=== PATIENT | male | born 1940 | race American Indian/Alaskan Native ===

== ENCOUNTER 2017-03-14 12:49 | Inpatient (IN) | payer MEDICARE ==
[2017-03-14 14:10] LABS: Basophils % (Auto) 0.5 % (0.0-1.8); Eosinophils % (Auto) 0.4 % (0.0-4.3); Hematocrit 33.5 % (35.5-45.6); Hemoglobin 10.8 gm/dl (11.8-15.2); Mean Corpuscular HGB Conc 32 % (32-34); Mean Corpuscular Hemoglobin 30 pg (28-32); Mean Corpuscular Volume 93 fl (84-94); Platelet Count 234 K/mm3 (140-440); Red Blood Count 3.61 M/mm3 (3.65-5.03); Red Cell Distribution Width 13.9 % (13.2-15.2); White Blood Count 5.3 K/mm3 (4.5-11.0)
[2017-03-14 14:35] LABS: Anion Gap 20 mmol/L; BUN/Creatinine Ratio 15; Blood Urea Nitrogen 35 mg/dL (9-20); Calcium 8.7 mg/dL (8.4-10.2); Carbon Dioxide 27 mmol/L (22-30); Chloride 99.7 mmol/L (98-107); Glucose 94 mg/dL (75-100); Potassium 3.7 mmol/L (3.6-5.0); Sodium 143 mmol/L (137-145)
--- NOTE | 2017-03-14 15:14 | Emergency Department Report ---
ED General Adult HPI - General Chief complaint: Dizziness Stated complaint: GENERAL WEAKNESS Time Seen by Provider: 03/14/17 15:11 Source: patient Mode of arrival: Ambulatory Limitations: No Limitations - History of Present Illness Initial comments: The patient drove himself to the fire station and was found to have a bradycardia. He arrived via EMS. He states he left his medication list in the car and is on some unknown medication for hypertension. He does not state that he was ever on warfarin but medication reconciliation records show a prior history. In addition it appears that he might be on amlodipine as he was on this in the past as well as lisinopril. He states that he was told that his heart rate is "delayed". However, he has never been told he needs to avoid certain types of blood pressure medicine because of this "delayed" heart rate. The patient denies previous weakness. He does admit to being under excessive stress. He states that he was for 32 years and he has recently . -: Gradual Radiation: other (no complaint of pain at all) Treatments Prior to Arrival: none - Related Data Home Medications Medication Instructions Recorded Confirmed Last Taken Pantoprazole [Protonix TAB] 20 mg PO DAILY 03/14/17 03/14/17 03/14/17 Valsartan/Hydrochlorothiazide 1 each PO DAILY 03/14/17 03/14/17 03/14/17 [Valsartan-Hctz 160-12.5 mg Tab] Warfarin [Coumadin] 3.75 mg PO BID 03/14/17 03/14/17 03/14/17 Allergies Allergy/AdvReac Type Severity Reaction Status Date / Time No Known Allergies Allergy Verified 12/29/12 12:06 ED Review of Systems ROS: Stated complaint: GENERAL WEAKNESS Other details as noted in HPI Constitutional: weakness. denies: chills, fever Eyes: denies: eye pain, eye discharge, vision change ENT: denies: ear pain, throat pain Respiratory: denies: cough, shortness of breath, wheezing Cardiovascular: syncope (near syncope). denies: chest pain, palpitations Endocrine: no symptoms reported Gastrointestinal: denies: abdominal pain, nausea, diarrhea Genitourinary: denies: urgency, dysuria Musculoskeletal: denies: back pain, joint swelling, arthralgia Skin: denies: rash, lesions Neurological: denies: headache, weakness, paresthesias Psychiatric: denies: anxiety, depression Hematological/Lymphatic: denies: easy bleeding, easy bruising ED Past Medical Hx - Past Medical History Hx Hypertension: Yes Hx Heart Attack/AMI: Yes Hx Arthritis: Yes - Social History Smoking Status: Former Smoker Substance Use Type: Alcohol - Medications Home Medications: Home Medications Medication Instructions Recorded Confirmed Last Taken Type Pantoprazole [Protonix TAB] 20 mg PO DAILY 03/14/17 03/14/17 03/14/17 History Valsartan/Hydrochlorothiazide 1 each PO DAILY 03/14/17 03/14/17 03/14/17 History [Valsartan-Hctz 160-12.5 mg Tab] Warfarin [Coumadin] 3.75 mg PO BID 03/14/17 03/14/17 03/14/17 History ED Physical Exam - General Limitations: No Limitations General appearance: alert, in no apparent distress - Head Head exam: Present: atraumatic, normocephalic - Eye Eye exam: Present: normal appearance - ENT ENT exam: Present: mucous membranes moist - Neck Neck exam: Present: normal inspection - Respiratory Respiratory exam: Present: normal lung sounds bilaterally. Absent: respiratory distress - Cardiovascular Cardiovascular Exam: Present: normal rhythm, bradycardia. Absent: systolic murmur, diastolic murmur, rubs, gallop - GI/Abdominal GI/Abdominal exam: Present: soft, normal bowel sounds. Absent: distended, tenderness, guarding, rebound, rigid - Rectal Rectal exam: Present: deferred - Extremities Exam Extremities exam: Present: normal inspection - Back Exam Back exam: Present: normal inspection - Neurological Exam Neurological exam: Present: alert, oriented X3, CN II-XII intact. Absent: motor sensory deficit - Psychiatric Psychiatric exam: Present: normal affect, normal mood - Skin Skin exam: Present: warm, dry, intact, normal color. Absent: rash ED Course Vital Signs 03/14/17 03/14/17 13:20 16:48 Temperature 97.9 F Pulse Rate 44 L 48 L O2 Sat by Pulse 98 Oximetry - Reevaluation(s) Reevaluation #1: Patient was admitted by Dr. Dent to the hospitalist service in stable condition. 03/14/17 19:28 ED Medical Decision Making - Lab Data Result diagrams: 03/14/17 13:43 03/14/17 13:43 Laboratory Results - last 24 hr 03/14/17 03/14/17 13:43 13:43 WBC 5.3 RBC 3.61 L Hgb 10.8 L Hct 33.5 L MCV 93 MCH 30 MCHC 32 RDW 13.9 Plt Count 234 Lymph % (Auto) 13.8 [place] % (Auto) 5.4 Eos % (Auto) 0.4 Baso % (Auto) 0.5 Lymph # 0.7 L [place] # 0.3 Eos # 0.0 Baso # 0.0 Seg Neutrophils % 79.9 H Seg Neutrophils # 4.2 Sodium 143 Potassium 3.7 Chloride 99.7 Carbon Dioxide 27 Anion Gap 20 BUN 35 H Creatinine 2.4 H Estimated GFR 32 BUN/Creatinine Ratio 15 Glucose 94 Calcium 8.7 Troponin T < 0.010 - EKG Data -: EKG Interpreted by Me EKG shows normal: sinus rhythm, axis, intervals, QRS complexes, ST-T waves Rate: bradycardia - EKG Data Interpretation: no acute changes - Radiology Data Radiology results: report reviewed (ectatic aorta per radiologist) Critical care attestation.: If time is entered above; I have spent that time in minutes in the direct care of this critically ill patient, excluding procedure time. ED Disposition Clinical Impression: Near syncope, Bradycardia Disposition: DC-[id number] OP ADMIT IP TO THIS HOSP Is pt being admited?: Yes Does the pt Need Aspirin: Yes Condition: Stable Time of Disposition: 19:28
[2017-03-14] MEDS ORDERED: NACL 0.9% 1000 ML 1,000 ML IV ONE (15:16)
--- NOTE | 2017-03-14 15:35 | XRay Report ---
AP CHEST: HISTORY: Bradycardia Compared to 03/25/12. Heart size is at the upper limits of normal. Previous CABG changes are suspected. The aorta is markedly ectatic with calcifications. The lungs are clear. No evidence for pleural effusion or pneumothorax. The bony structures are grossly intact. Surgical clips in the right axilla. IMPRESSION: Borderline heart size. Ectatic aorta. Lungs clear.
[2017-03-14 15:50] LABS: INR 1.91 (0.87-1.13); Partial Thromboplastin Time 33.2 Sec. (24.2-36.6)
[2017-03-14 16:15] LABS: Alanine Aminotransferase 8 units/L (7-56); Albumin 3.8 g/dL (3.9-5); Albumin/Globulin Ratio 1.5 %; Alkaline Phosphatase 53 units/L (35-129); Total Protein 6.4 g/dL (6.3-8.2)
[2017-03-14 16:20] LABS: Bilirubin,Direct < 0.2 mg/dL (0-0.2); Bilirubin,Indirect 0.2 mg/dL
[2017-03-14 17:17] LABS: Bacteria,Urine 1+ /HPF (Negative); Bilirubin,Urine NEG (Negative); Blood,Urine NEG (Negative); Ketones,Urine NEG (Negative); Leukocyte Esterase,Urine NEG (Negative); Mucus,Urine FEW /HPF; Nitrite,Urine NEG (Negative); Protein,Urine <15 mg/dL mg/dL (Negative); WBC,Urine < 1.0 /HPF (0.0-6.0)
--- NOTE | 2017-03-14 17:48 | History and Physical Report ---
History of Present Illness Date of examination: 03/14/17 Date of admission: 03/14/17 15:44 Chief complaint: Low heart rate and new syncope History of present illness: 76-year-old -Senegalese male with past medical history significant for CAD status post 2 CABG, hypertension, hyperlipidemia presented to the emergency department for the complaints of low heart rate and near syncope. The patient said he had bradycardia the lowest was 36, associated with feeling woozy for a while. When he feels this kind of symptoms he usually sits down and check his heart rate and usually was low. This morning after he took his blood pressure medications he almost passed out and check his heart rate and it was 36. There is no bartolo blocking agents in his medication list. Patient said he was not taking warfarin but he was in his medication list and his INR was 1.9. REVIEW OF SYSTEMS: GENERAL: no weight change, no fatigue, no fever HEAD: no head ache EYES: no blurry vision, no acute visual loss EARS: no hearing loss, no discharge, no earache NOSE: no stuffiness, no sneezing, no discharge MOUTH, THROAT AND NECK: no bleeding gums, no sore throat, no swollen neck CARDIAC: no palpitations, no dyspnea on exertion, no orthopnea, no PND, no edema , no chest pain RESPIRATORY: no shortness of breath, no wheeze, no cough, no sputum, no hemoptysis, no asthma GI: no decreased appetite, no nausea, no vomiting, no dysphagia, no diarrhea, no constipation, no abdominal pain URINARY: no change in frequency, no urgency, no polyuria, no hematuria, no incontinence MUSCULOSKELETAL: no muscle weakness, no pain, no joint stiffness NEUROLOGIC: no loss of sensation/numbness, no tingling, no tremors, no weakness/ paralysis HEMATOLOGIC: no anemia, no easy bruising SKIN: no rashes ENDOCRINE: no heat/cold intolerance, no polyuria, no polydipsia, no thyroid problems, no diabetes PSYCHIATRIC: no anxiety, no depression, no suicidal ideations Past History Past Medical History: CAD, hypertension, hyperlipidemia Past Surgical History: CABG Social history: full code. denies: smoking, alcohol abuse, prescription drug abuse, IV drug use Family history: no significant family history Medications and Allergies Allergies Allergy/AdvReac Type Severity Reaction Status Date / Time No Known Allergies Allergy Verified 09/20/13 12:06 Home Medications Medication Instructions Recorded Confirmed Last Taken Type Pantoprazole [Protonix TAB] 20 mg PO DAILY 03/14/17 03/14/17 03/14/17 History Valsartan/Hydrochlorothiazide 1 each PO DAILY 03/14/17 03/14/17 03/14/17 History [Valsartan-Hctz 160-12.5 mg Tab] Warfarin [Coumadin] 3.75 mg PO BID 03/14/17 03/14/17 03/14/17 History Active Meds: Active Medications Sodium Chloride (Nacl 0.9% 1000 Ml) 1,000 mls @ 125 mls/hr IV ONCE ONE Stop: 03/14/17 23:15 Last Admin: 03/14/17 15:18 Dose: 125 mls/hr Exam - Physical Exam Narrative exam: Not in cardiopulmonary distress. The patient appeared well nourished and normally developed. Vital signs as documented. Head exam is unremarkable. No scleral icterus . Neck is without jugular venous distension, thyromegaly, or carotid bruits. Lungs are clear to auscultation. Cardiac exam reveals bradycardia. Abdominal exam reveals normal bowel sounds, no masses, no organomegaly and no aortic enlargement. Extremities are nonedematous and both femoral and pedal pulses are normal. 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 No focal weakness. - Constitutional Vitals: Temp Pulse Resp BP Pulse Ox 97.9 F 44 L 98 03/14/17 13:20 03/14/17 13:20 03/14/17 13:20 Results - Labs CBC & Chem 7: 03/14/17 13:43 03/14/17 13:43 Labs: Laboratory Last Values WBC 5.3 K/mm3 (4.5-11.0) 03/14/17 13:43 RBC 3.61 M/mm3 (3.65-5.03) L 03/14/17 13:43 Hgb 10.8 gm/dl (11.8-15.2) L 03/14/17 13:43 Hct 33.5 % (35.5-45.6) L 03/14/17 13:43 MCV 93 fl (84-94) 03/14/17 13:43 MCH 30 pg (28-32) 03/14/17 13:43 MCHC 32 % (32-34) 03/14/17 13:43 RDW 13.9 % (13.2-15.2) 03/14/17 13:43 Plt Count 234 K/mm3 (140-440) 03/14/17 13:43 Lymph % (Auto) 13.8 % (13.4-35.0) 03/14/17 13:43 [place] % (Auto) 5.4 % (0.0-7.3) 03/14/17 13:43 Eos % (Auto) 0.4 % (0.0-4.3) 03/14/17 13:43 Baso % (Auto) 0.5 % (0.0-1.8) 03/14/17 13:43 Lymph # 0.7 K/mm3 (1.2-5.4) L 03/14/17 13:43 [place] # 0.3 K/mm3 (0.0-0.8) 03/14/17 13:43 Eos # 0.0 K/mm3 (0.0-0.4) 03/14/17 13:43 Baso # 0.0 K/mm3 (0.0-0.1) 03/14/17 13:43 Seg Neutrophils % 79.9 % (40.0-70.0) H 03/14/17 13:43 Seg Neutrophils # 4.2 K/mm3 (1.8-7.7) 03/14/17 13:43 PT 23.0 Sec. (12.2-14.9) H 03/14/17 Unknown INR 1.91 (0.87-1.13) H 03/14/17 Unknown APTT 33.2 Sec. (24.2-36.6) 03/14/17 Unknown Sodium 143 mmol/L (137-145) 03/14/17 13:43 Potassium 3.7 mmol/L (3.6-5.0) 03/14/17 13:43 Chloride 99.7 mmol/L (98-107) 03/14/17 13:43 Carbon Dioxide 27 mmol/L (22-30) 03/14/17 13:43 Anion Gap 20 mmol/L 03/14/17 13:43 BUN 35 mg/dL (9-20) H 03/14/17 13:43 Creatinine 2.4 mg/dL (0.8-1.5) H 03/14/17 13:43 Estimated GFR 32 ml/min 03/14/17 13:43 BUN/Creatinine Ratio 15 % 03/14/17 13:43 Glucose 94 mg/dL (75-100) 03/14/17 13:43 Calcium 8.7 mg/dL (8.4-10.2) 03/14/17 13:43 Magnesium 2.10 mg/dL (1.7-2.3) 03/14/17 15:14 Total Bilirubin 0.40 mg/dL (0.1-1.2) 03/14/17 15:14 Direct Bilirubin < 0.2 mg/dL (0-0.2) 03/14/17 15:14 Indirect Bilirubin 0.2 mg/dL 03/14/17 15:14 AST 20 units/L (5-40) 03/14/17 15:14 ALT 8 units/L (7-56) 03/14/17 15:14 Alkaline Phosphatase 53 units/L (35-129) 03/14/17 15:14 Troponin T < 0.010 ng/mL (0.00-0.029) 03/14/17 16:27 NT-Pro-B Natriuret Pep 893.1 pg/mL (0-900) 03/14/17 15:14 Total Protein 6.4 g/dL (6.3-8.2) 03/14/17 15:14 Albumin 3.8 g/dL (3.9-5) L 03/14/17 15:14 Albumin/Globulin Ratio 1.5 % 03/14/17 15:14 TSH 1.320 mlU/mL (0.270-4.200) 03/14/17 15:14 Free T4 1.30 ng/dL (0.76-1.46) 03/14/17 15:14 Urine Color Yellow (Yellow) 03/14/17 16:46 Urine Turbidity Clear (Clear) 03/14/17 16:46 Urine pH 6.0 (5.0-7.0) 03/14/17 16:46 Ur Specific [place] 1.015 (1.003-1.030) 03/14/17 16:46 Urine Protein <15 mg/dl mg/dL (Negative) 03/14/17 16:46 Urine Glucose (UA) Neg mg/dL (Negative) 03/14/17 16:46 Urine Ketones Neg mg/dL (Negative) 03/14/17 16:46 Urine Blood Neg (Negative) 03/14/17 16:46 Urine Nitrite Neg (Negative) 03/14/17 16:46 Urine Bilirubin Neg (Negative) 03/14/17 16:46 Urine Urobilinogen 4.0 mg/dL (<2.0) 03/14/17 16:46 Ur Leukocyte Esterase Neg (Negative) 03/14/17 16:46 Urine WBC (Auto) < 1.0 /HPF (0.0-6.0) 03/14/17 16:46 Urine RBC (Auto) 2.0 /HPF (0.0-6.0) 03/14/17 16:46 Urine Bacteria (Auto) 1+ /HPF (Negative) 03/14/17 16:46 Urine Mucus Few /HPF 03/14/17 16:46 - Imaging and Cardiology EKG: image reviewed (sinus bradycardia) Chest x-ray: report reviewed (borderline cardiomegaly, ectatic aorta) Assessment and Plan Assessment and plan: 76-year-old -Senegalese male with past medical history significant for CAD status post CABG hypertension presented for bradycardia and near syncope Bradycardia, with disequilibrium - Patient is stable after admission, will monitor - Cardiology consult placed Hypertension - Continue home medications - We will monitor and adjust DVT prophylaxis -INR is 1.91 and will put him on SCD Disposition - Admit to telemetry Advance Directives: Yes VTE prophylaxis?: Chemical Plan of care discussed with patient/family: Yes
[2017-03-14] MEDS: BABY ASPIRIN PO SCH (20:43)
[2017-03-15 07:06] LABS: Basophils % (Auto) 0.6 % (0.0-1.8); Eosinophils % (Auto) 0.8 % (0.0-4.3); Hematocrit 31.7 % (35.5-45.6); Hemoglobin 10.6 gm/dl (11.8-15.2); Mean Corpuscular HGB Conc 33 % (32-34); Mean Corpuscular Hemoglobin 30 pg (28-32); Mean Corpuscular Volume 91 fl (84-94); Platelet Count 224 K/mm3 (140-440); Red Blood Count 3.48 M/mm3 (3.65-5.03); Red Cell Distribution Width 13.6 % (13.2-15.2); White Blood Count 5.5 K/mm3 (4.5-11.0)
[2017-03-15 07:16] LABS: INR 1.85 (0.87-1.13)
[2017-03-15 07:17] LABS: Partial Thromboplastin Time 33.3 Sec. (24.2-36.6)
[2017-03-15 07:31] LABS: Calcium 8.5 mg/dL (8.4-10.2); Chloride 100.3 mmol/L (98-107); Potassium 3.5 mmol/L (3.6-5.0)
[2017-03-15] MEDS ORDERED: HCTZ PO SCH (10:00)
[2017-03-15] MEDS ORDERED: DIOVAN PO SCH (10:00)
[2017-03-15] MEDS ORDERED: NON-FORMULARY (Valsartan/Hydrochlorothiazide [Valsartan-Hctz 160-12.5 Mg Tab] 1 EACH) PO SCH (10:00)
[2017-03-15] MEDS: BABY ASPIRIN PO SCH (10:42)
[2017-03-15] MEDS: PROTONIX PO SCH (10:43)
--- NOTE | 2017-03-15 11:40 | Consultation ---
History of Present Illness Consult date: 03/15/17 Consult reason: bradycardia, other (presyncope) History of present illness: The patient has a history of coronary artery disease, status post CABG and he reports undergoing a redo CABG 3 years ago at [facility]. He is a rather poor historian and cannot recall his medications. While standing at a store yesterday, he claims he suddenly became "woozy". He sat down and had a presyncopal episode. He claims that he was held by an individual at the store and prevented from falling down. He was subsequently brought to the emergency department. He denies chest pain, dyspnea, or palpitations. Cardiac enzymes are negative for acute myocardial infarction. His thyroid profile is normal. His heart rate has often been in the 40s to 50s since admission. His renal indices are abnormal. 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 Past History Past Medical History: acute [place] (x2), CAD, hypertension, hyperlipidemia Past Surgical History: CABG Social history: full code. denies: smoking, alcohol abuse, IV drug use Family history: no significant family history Medications and Allergies Allergies Allergy/AdvReac Type Severity Reaction Status Date / Time No Known Allergies Allergy Verified 12/29/12 12:06 Home Medications Medication Instructions Recorded Confirmed Last Taken Type Pantoprazole [Protonix TAB] 20 mg PO DAILY 03/14/17 03/14/17 03/14/17 History Valsartan/Hydrochlorothiazide 1 each PO DAILY 03/14/17 03/14/17 03/14/17 History [Valsartan-Hctz 160-12.5 mg Tab] Warfarin [Coumadin] 3.75 mg PO BID 03/14/17 03/14/17 03/14/17 History Active Meds: Active Medications Aspirin (Baby Aspirin) 81 mg PO QDAY [facility] Last Admin: 03/14/17 20:43 Dose: 81 mg Hydrochlorothiazide (Hctz) 12.5 mg PO QDAY AYDEN Pantoprazole Sodium (Protonix) 20 mg PO DAILY AYDEN Valsartan (Diovan) 160 mg PO QDAY [facility] Review of Systems Constitutional: no fever, no chills Ears, nose, mouth and throat: no ear pain, no hoarseness, no sore throat Cardiovascular: lightheadedness, no chest pain, no orthopnea, no palpitations, no edema, no shortness of breath Respiratory: no cough, no hemoptysis, no shortness of breath Gastrointestinal: no abdominal pain, no nausea, no vomiting, no diarrhea, no constipation Genitourinary Male: no dysuria, no hematuria, no urinary frequency Rectal: no pain, no bleeding Musculoskeletal: no neck stiffness, no neck pain, no myalgias Integumentary: no rash, no pruritis Neurological: no weakness, no parathesias, no headaches Endocrine: no cold intolerance, no heat intolerance Hematologic/Lymphatic: no easy bruising, no easy bleeding Allergic/Immunologic: no urticaria, no wheezing Physical Examination Vital Signs Last Vital Signs Temp 98.6 F 03/15/17 09:05 Pulse 47 L 03/15/17 09:05 Resp 18 03/15/17 09:05 BP 151/95 03/15/17 09:05 Pulse Ox 98 03/15/17 09:05 General appearance: no acute distress HEENT: Positive: EOMI, Normocephaly, Mucus Membranes Moist Neck: Positive: neck supple, trachea midline Cardiac: Positive: Reg Rate and Rhythm, S1/S2 Lungs: Positive: clear to auscultation Neuro: Positive: Grossly Intact Abdomen: Positive: Soft, Active Bowel Sounds. Negative: Tender Skin: Positive: Clear. Negative: Rash Musculoskeletal: Normal Range of Motion Extremities: Present: normal. Absent: edema Results 03/15/17 06:47 03/15/17 06:47 Cardiac Enzymes 03/14/17 Range/Units 15:14 AST 20 (5-40) units/L Coagulation 03/14/17 03/15/17 Range/Units Unknown 06:47 PT 23.0 H 22.4 H (12.2-14.9) Sec. INR 1.91 H 1.85 H (0.87-1.13) APTT 33.2 33.3 (24.2-36.6) Sec. Lipids 03/14/17 Range/Units 19:51 Triglycerides 50 (2-149) mg/dL Cholesterol 185 (50-199) mg/dL HDL Cholesterol 71 H (40-59) mg/dL Cholesterol/HDL Ratio 2.60 % CBC 03/14/17 03/15/17 Range/Units 13:43 06:47 WBC 5.3 5.5 (4.5-11.0) K/mm3 RBC 3.61 L 3.48 L (3.65-5.03) M/mm3 Hgb 10.8 L 10.6 L (11.8-15.2) gm/dl Hct 33.5 L 31.7 L (35.5-45.6) % Plt Count 234 224 (140-440) K/mm3 Lymph # 0.7 L 1.3 (1.2-5.4) K/mm3 [place] # 0.3 0.3 (0.0-0.8) K/mm3 Eos # 0.0 0.0 (0.0-0.4) K/mm3 Baso # 0.0 0.0 (0.0-0.1) K/mm3 Comprehensive Metabolic Panel 03/14/17 03/14/17 03/15/17 Range/Units 13:43 15:14 06:47 Sodium 143 143 (137-145) mmol/L Potassium 3.7 3.5 L (3.6-5.0) mmol/L Chloride 99.7 100.3 (98-107) mmol/L Carbon Dioxide 27 29 (22-30) mmol/L BUN 35 H 31 H (9-20) mg/dL Creatinine 2.4 H 1.9 H (0.8-1.5) mg/dL Glucose 94 89 (75-100) mg/dL Calcium 8.7 8.5 (8.4-10.2) mg/dL Direct Bilirubin < 0.2 (0-0.2) mg/dL Indirect Bilirubin 0.2 mg/dL AST 20 (5-40) units/L ALT 8 (7-56) units/L Alkaline Phosphatase 53 (35-129) units/L Total Protein 6.4 (6.3-8.2) g/dL Albumin 3.8 L (3.9-5) g/dL - Imaging and Cardiology EKG: image reviewed EKG interpretations - Telemetry EKG Rhythm: Sinus Bradycardia - EKG Sinus rhythms and dysrhythmias: sinus tachycardia Chamber hypertrophy or enlargement: left ventricular hypertro Assessment and Plan Obtain orthostatics. With his renal indices and possible component of IWONA, discontinue hydrochlorothiazide and valsartan. Initiate amlodipine and hydralazine for BP control. I will avoid AV blocking medications at this time. Intravenous fluids. Schedule Lexiscan stress test with nuclear imaging in am. Obtain echocardiogram. - Patient Problems (1) Pre-syncope Current Visit: Yes Status: Acute (2) Sinus bradycardia Current Visit: Yes Status: Acute (3) Acute kidney injury Current Visit: Yes Status: Acute (4) Hypertension Current Visit: Yes Status: Chronic Qualifiers: Hypertension type: essential hypertension Qualified Code(s): I10 - Essential (primary) hypertension (5) CAD (coronary artery disease) Current Visit: Yes Status: Chronic Qualifiers: Coronary Disease-Associated Artery/Lesion type: [place] artery (6) Hx of CABG Current Visit: Yes Status: Chronic (7) History of chronic dissection of thoracic aorta Current Visit: Yes Status: Chronic
[2017-03-15] MEDS ORDERED: NACL 0.45% 1,000 ML IV SCH (12:00)
--- NOTE | 2017-03-15 16:39 | Progress Note ---
Assessment and Plan Assessment and plan: 76-year-old -Norwegian male with past medical history significant for CAD status post CABG hypertension presented for bradycardia and near syncope Bradycardia, with disequilibrium - Patient is stable after admission, continue telemetry monitoring - Cardiology consulted and will do stress test tomorrow Hypertension -Discontinue lisinopril and HCTZ, patient started with amlodipine and hydralazine per cardiology Patient said he was on warfarin - But he denied any history of blood clot, A. fib, I'll hold the warfarin for now and the decision for cardiology DVT prophylaxis - Patient is on SCD Disposition - Continue inpatient monitoring. History Interval history: Patient was seen and evaluated this morning, he has not new complaints after admission to the hospital. Hospitalist Physical - Physical exam Narrative exam: Not in cardiopulmonary distress. The patient appeared well nourished and normally developed. Vital signs as documented. Head exam is unremarkable. No scleral icterus . Neck is without jugular venous distension, thyromegaly, or carotid bruits. Lungs are clear to auscultation. Cardiac exam reveals bradycardia. Abdominal exam reveals normal bowel sounds, no masses, no organomegaly and no aortic enlargement. Extremities are nonedematous and both femoral and pedal pulses are normal. 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 No focal weakness. - Constitutional Vitals: Temp Pulse Resp BP Pulse Ox 98.7 F 50 L 16 190/112 97 03/15/17 10:10 03/15/17 13:00 03/15/17 10:10 03/15/17 13:00 03/15/17 13:00 General appearance: Present: no acute distress Results - Labs CBC & Chem 7: 03/15/17 06:47 03/15/17 06:47 Labs: Laboratory Last Values WBC 5.5 K/mm3 (4.5-11.0) 03/15/17 06:47 RBC 3.48 M/mm3 (3.65-5.03) L 03/15/17 06:47 Hgb 10.6 gm/dl (11.8-15.2) L 03/15/17 06:47 Hct 31.7 % (35.5-45.6) L 03/15/17 06:47 MCV 91 fl (84-94) 03/15/17 06:47 MCH 30 pg (28-32) 03/15/17 06:47 MCHC 33 % (32-34) 03/15/17 06:47 RDW 13.6 % (13.2-15.2) 03/15/17 06:47 Plt Count 224 K/mm3 (140-440) 03/15/17 06:47 Lymph % (Auto) 23.9 % (13.4-35.0) 03/15/17 06:47 [place] % (Auto) 5.3 % (0.0-7.3) 03/15/17 06:47 Eos % (Auto) 0.8 % (0.0-4.3) 03/15/17 06:47 Baso % (Auto) 0.6 % (0.0-1.8) 03/15/17 06:47 Lymph # 1.3 K/mm3 (1.2-5.4) 03/15/17 06:47 [place] # 0.3 K/mm3 (0.0-0.8) 03/15/17 06:47 Eos # 0.0 K/mm3 (0.0-0.4) 03/15/17 06:47 Baso # 0.0 K/mm3 (0.0-0.1) 03/15/17 06:47 Seg Neutrophils % 69.4 % (40.0-70.0) 03/15/17 06:47 Seg Neutrophils # 3.8 K/mm3 (1.8-7.7) 03/15/17 06:47 PT 22.4 Sec. (12.2-14.9) H 03/15/17 06:47 INR 1.85 (0.87-1.13) H 03/15/17 06:47 APTT 33.3 Sec. (24.2-36.6) 03/15/17 06:47 Sodium 143 mmol/L (137-145) 03/15/17 06:47 Potassium 3.5 mmol/L (3.6-5.0) L 03/15/17 06:47 Chloride 100.3 mmol/L (98-107) 03/15/17 06:47 Carbon Dioxide 29 mmol/L (22-30) 03/15/17 06:47 Anion Gap 17 mmol/L 03/15/17 06:47 BUN 31 mg/dL (9-20) H 03/15/17 06:47 Creatinine 1.9 mg/dL (0.8-1.5) H 03/15/17 06:47 Estimated GFR 42 ml/min 03/15/17 06:47 BUN/Creatinine Ratio 16 % 03/15/17 06:47 Glucose 89 mg/dL (75-100) 03/15/17 06:47 Calcium 8.5 mg/dL (8.4-10.2) 03/15/17 06:47 Magnesium 2.10 mg/dL (1.7-2.3) 03/14/17 15:14 Total Bilirubin 0.40 mg/dL (0.1-1.2) 03/14/17 15:14 Direct Bilirubin < 0.2 mg/dL (0-0.2) 03/14/17 15:14 Indirect Bilirubin 0.2 mg/dL 03/14/17 15:14 AST 20 units/L (5-40) 03/14/17 15:14 ALT 8 units/L (7-56) 03/14/17 15:14 Alkaline Phosphatase 53 units/L (35-129) 03/14/17 15:14 Troponin T < 0.010 ng/mL (0.00-0.029) 03/14/17 19:51 NT-Pro-B Natriuret Pep 893.1 pg/mL (0-900) 03/14/17 15:14 Total Protein 6.4 g/dL (6.3-8.2) 03/14/17 15:14 Albumin 3.8 g/dL (3.9-5) L 03/14/17 15:14 Albumin/Globulin Ratio 1.5 % 03/14/17 15:14 Triglycerides 50 mg/dL (2-149) 03/14/17 19:51 Cholesterol 185 mg/dL (50-199) 03/14/17 19:51 LDL Cholesterol Direct 104 mg/dL (50-130) 03/14/17 19:51 HDL Cholesterol 71 mg/dL (40-59) H 03/14/17 19:51 Cholesterol/HDL Ratio 2.60 % 03/14/17 19:51 TSH 1.350 mlU/mL (0.270-4.200) 03/14/17 19:51 Free T4 1.30 ng/dL (0.76-1.46) 03/14/17 15:14 Urine Color Yellow (Yellow) 03/14/17 16:46 Urine Turbidity Clear (Clear) 03/14/17 16:46 Urine pH 6.0 (5.0-7.0) 03/14/17 16:46 Ur Specific [place] 1.015 (1.003-1.030) 03/14/17 16:46 Urine Protein <15 mg/dl mg/dL (Negative) 03/14/17 16:46 Urine Glucose (UA) Neg mg/dL (Negative) 03/14/17 16:46 Urine Ketones Neg mg/dL (Negative) 03/14/17 16:46 Urine Blood Neg (Negative) 03/14/17 16:46 Urine Nitrite Neg (Negative) 03/14/17 16:46 Urine Bilirubin Neg (Negative) 03/14/17 16:46 Urine Urobilinogen 4.0 mg/dL (<2.0) 03/14/17 16:46 Ur Leukocyte Esterase Neg (Negative) 03/14/17 16:46 Urine WBC (Auto) < 1.0 /HPF (0.0-6.0) 03/14/17 16:46 Urine RBC (Auto) 2.0 /HPF (0.0-6.0) 03/14/17 16:46 Urine Bacteria (Auto) 1+ /HPF (Negative) 03/14/17 16:46 Urine Mucus Few /HPF 03/14/17 16:46
[2017-03-16 08:01] LABS: Calcium 8.6 mg/dL (8.4-10.2); Chloride 99.6 mmol/L (98-107); Potassium 3.6 mmol/L (3.6-5.0)
[2017-03-16] MEDS ORDERED: LEXISCAN IV ONE ×2 (09:24→09:25)
[2017-03-16] MEDS: NORVASC PO SCH (11:15)
[2017-03-16] MEDS: BABY ASPIRIN PO SCH (11:15)
[2017-03-16] MEDS: DIOVAN PO SCH (11:15)
[2017-03-16] MEDS: PROTONIX PO SCH (11:16)
--- NOTE | 2017-03-16 12:38 | Query- General ---
Dear ___Filipe Date:__03/16/17 Liner Worker/CDS:____Jordy Phone#:____[phone] Exercise your independent professional judgment when responding to this query. Questions asked do not imply a particular answer is desired or expected. We greatly appreciate your clarification on this issue. Clinical Documentation States: 76 year old male was admitted on 03/14/17 The progress note (Dr. Dent 03/15/17) states " Assessment and plan: 76-year-old -G[place]ian male with past medical history significant for CAD status post CABG hypertension presented for bradycardia and near syncope Bradycardia, with disequilibrium Hypertension " Clinical Findings Show (include reference to source document): 03/14/17 03/15/17 03/16/17 Creatinine: 2.4 1.9 1.7 BUN/Creatinine Ratio: Given the above clinical scenario can you please provide an appropriate diagnosis based on your knowledge of the patient: PHYSICIAN RESPONSE: [ ] Tubular necrosis [ ] Cortical necrosis [ ] Medullary necrosis [x ] Vasomotor nephropathy [ ] Tubular nephrosis [ ] lower tubular nephrosis [ ] Renal tubular stasis [ ] Other (Please specify) [ ] Clinically undeterminable Present on Admission: [x ] Yes (Y) [ ] Clinically undeterminable (W) [ ]No(N) Please also document response in your Progress Notes and/or Discharge Summary and indicate if the condition was present on admission. STEPHANIED
--- NOTE | 2017-03-16 13:06 | Progress Note ---
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 on PET/CT done in 2013 Acute on chronic renal failure Anemia Systemic Hypertension Long standing history of coumadin therapy for unknown reason (patient is a very poor historian) Recommendations: IV hydration Once renal function improves, may consider a CTA chest to evaluate suspected chronic aortic dissection noted in 2014 No further cardiac work-up needed Subjective Date of service: 03/16/17 Principal diagnosis: General weakness Interval history: Patient denies chest pain or shortness of breath Objective Vital Signs Temp Pulse Resp BP BP Pulse Ox 03/16/17 04:00 98.5 F 62 18 132/91 98 03/16/17 01:17 97.8 F 69 20 161/98 97 03/16/17 00:00 48 L 03/15/17 20:15 18 03/15/17 20:00 98.6 F 52 L 20 155/98 03/15/17 19:30 146/75 03/15/17 19:00 141/77 03/15/17 18:30 134/68 03/15/17 18:29 169/104 03/15/17 16:38 98.1 F 46 L 18 100 - Physical Examination HEENT: Positive: EOMI, Normocephaly, Mucus Membranes Moist Neck: Positive: neck supple, trachea midline Cardiac: Positive: Reg Rate and Rhythm Lungs: Positive: Normal Exam Neuro: Positive: Grossly Intact Abdomen: Positive: Soft, Active Bowel Sounds. Negative: Tender Skin: Positive: Clear. Negative: Rash Musculoskeletal: Normal Range of Motion Extremities: Present: normal. Absent: edema - Labs and Meds Comprehensive Metabolic Panel 03/16/17 Range/Units 06:58 Sodium 142 (137-145) mmol/L Potassium 3.6 (3.6-5.0) mmol/L Chloride 99.6 (98-107) mmol/L Carbon Dioxide 29 (22-30) mmol/L BUN 29 H (9-20) mg/dL Creatinine 1.7 H (0.8-1.5) mg/dL Glucose 86 (75-100) mg/dL Calcium 8.6 (8.4-10.2) mg/dL - Imaging and Cardiology EKG: image reviewed - EKG Sinus rhythms and dysrhythmias: sinus tachycardia Chamber hypertrophy or enlargement: left ventricular hypertro
--- NOTE | 2017-03-16 15:32 | Progress Note ---
Assessment and Plan Assessment and plan: 76-year-old -Grenadian male with past medical history significant for CAD status post CABG hypertension presented for bradycardia and near syncope Bradycardia, with disequilibrium - Patient is stable after admission, continue telemetry monitoring - Cardiology consulted - Stress test is normal Hypertension -Discontinue lisinopril and HCTZ, patient started with amlodipine and hydralazine per cardiology Patient said he was on warfarin - But he denied any history of blood clot, A. fib, I'll hold the warfarin for now and the decision for cardiology IWONA - on IV fluids - Monitor BMP History of Aortic Dissection - W/U after IV hydration DVT prophylaxis - Patient is on SCD Disposition - Continue inpatient monitoring. History Interval history: Patient was seen and evaluated this morning, he has not new complaints after admission to the hospital. Hospitalist Physical - Physical exam Narrative exam: Not in cardiopulmonary distress. The patient appeared well nourished and normally developed. Vital signs as documented. Head exam is unremarkable. No scleral icterus . Neck is without jugular venous distension, thyromegaly, or carotid bruits. Lungs are clear to auscultation. Cardiac exam reveals bradycardia. Abdominal exam reveals normal bowel sounds, no masses, no organomegaly and no aortic enlargement. Extremities are nonedematous and both femoral and pedal pulses are normal. MODEL MAKER PLASTER: Alert and oriented 3. No focal weakness. - Constitutional Vitals: Temp Pulse Resp BP Pulse Ox 98.6 F 67 18 131/88 98 03/16/17 13:15 03/16/17 13:15 03/16/17 04:00 03/16/17 13:15 03/16/17 04:00 General appearance: Present: no acute distress Results - Labs CBC & Chem 7: 03/15/17 06:47 03/16/17 06:58 Labs: Laboratory Last Values WBC 5.5 K/mm3 (4.5-11.0) 03/15/17 06:47 RBC 3.48 M/mm3 (3.65-5.03) L 03/15/17 06:47 Hgb 10.6 gm/dl (11.8-15.2) L 03/15/17 06:47 Hct 31.7 % (35.5-45.6) L 03/15/17 06:47 MCV 91 fl (84-94) 03/15/17 06:47 MCH 30 pg (28-32) 03/15/17 06:47 MCHC 33 % (32-34) 03/15/17 06:47 RDW 13.6 % (13.2-15.2) 03/15/17 06:47 Plt Count 224 K/mm3 (140-440) 03/15/17 06:47 Lymph % (Auto) 23.9 % (13.4-35.0) 03/15/17 06:47 [place] % (Auto) 5.3 % (0.0-7.3) 03/15/17 06:47 Eos % (Auto) 0.8 % (0.0-4.3) 03/15/17 06:47 Baso % (Auto) 0.6 % (0.0-1.8) 03/15/17 06:47 Lymph # 1.3 K/mm3 (1.2-5.4) 03/15/17 06:47 [place] # 0.3 K/mm3 (0.0-0.8) 03/15/17 06:47 Eos # 0.0 K/mm3 (0.0-0.4) 03/15/17 06:47 Baso # 0.0 K/mm3 (0.0-0.1) 03/15/17 06:47 Seg Neutrophils % 69.4 % (40.0-70.0) 03/15/17 06:47 Seg Neutrophils # 3.8 K/mm3 (1.8-7.7) 03/15/17 06:47 PT 22.4 Sec. (12.2-14.9) H 03/15/17 06:47 INR 1.85 (0.87-1.13) H 03/15/17 06:47 APTT 33.3 Sec. (24.2-36.6) 03/15/17 06:47 Sodium 142 mmol/L (137-145) 03/16/17 06:58 Potassium 3.6 mmol/L (3.6-5.0) 03/16/17 06:58 Chloride 99.6 mmol/L (98-107) 03/16/17 06:58 Carbon Dioxide 29 mmol/L (22-30) 03/16/17 06:58 Anion Gap 17 mmol/L 03/16/17 06:58 BUN 29 mg/dL (9-20) H 03/16/17 06:58 Creatinine 1.7 mg/dL (0.8-1.5) H 03/16/17 06:58 Estimated GFR 48 ml/min 03/16/17 06:58 BUN/Creatinine Ratio 17 % 03/16/17 06:58 Glucose 86 mg/dL (75-100) 03/16/17 06:58 Calcium 8.6 mg/dL (8.4-10.2) 03/16/17 06:58 Magnesium 2.10 mg/dL (1.7-2.3) 03/14/17 15:14 Total Bilirubin 0.40 mg/dL (0.1-1.2) 03/14/17 15:14 Direct Bilirubin < 0.2 mg/dL (0-0.2) 03/14/17 15:14 Indirect Bilirubin 0.2 mg/dL 03/14/17 15:14 AST 20 units/L (5-40) 03/14/17 15:14 ALT 8 units/L (7-56) 03/14/17 15:14 Alkaline Phosphatase 53 units/L (35-129) 03/14/17 15:14 Troponin T < 0.010 ng/mL (0.00-0.029) 03/14/17 19:51 NT-Pro-B Natriuret Pep 893.1 pg/mL (0-900) 03/14/17 15:14 Total Protein 6.4 g/dL (6.3-8.2) 03/14/17 15:14 Albumin 3.8 g/dL (3.9-5) L 03/14/17 15:14 Albumin/Globulin Ratio 1.5 % 03/14/17 15:14 Triglycerides 50 mg/dL (2-149) 03/14/17 19:51 Cholesterol 185 mg/dL (50-199) 03/14/17 19:51 LDL Cholesterol Direct 104 mg/dL (50-130) 03/14/17 19:51 HDL Cholesterol 71 mg/dL (40-59) H 03/14/17 19:51 Cholesterol/HDL Ratio 2.60 % 03/14/17 19:51 TSH 1.350 mlU/mL (0.270-4.200) 03/14/17 19:51 Free T4 1.30 ng/dL (0.76-1.46) 03/14/17 15:14 Urine Color Yellow (Yellow) 03/14/17 16:46 Urine Turbidity Clear (Clear) 03/14/17 16:46 Urine pH 6.0 (5.0-7.0) 03/14/17 16:46 Ur Specific [place] 1.015 (1.003-1.030) 03/14/17 16:46 Urine Protein <15 mg/dl mg/dL (Negative) 03/14/17 16:46 Urine Glucose (UA) Neg mg/dL (Negative) 03/14/17 16:46 Urine Ketones Neg mg/dL (Negative) 03/14/17 16:46 Urine Blood Neg (Negative) 03/14/17 16:46 Urine Nitrite Neg (Negative) 03/14/17 16:46 Urine Bilirubin Neg (Negative) 03/14/17 16:46 Urine Urobilinogen 4.0 mg/dL (<2.0) 03/14/17 16:46 Ur Leukocyte Esterase Neg (Negative) 03/14/17 16:46 Urine WBC (Auto) < 1.0 /HPF (0.0-6.0) 03/14/17 16:46 Urine RBC (Auto) 2.0 /HPF (0.0-6.0) 03/14/17 16:46 Urine Bacteria (Auto) 1+ /HPF (Negative) 03/14/17 16:46 Urine Mucus Few /HPF 03/14/17 16:46
[2017-03-16] MEDS: NACL 0.45% 2,000 ML IV SCH (22:09)
--- NOTE | 2017-03-17 02:49 | Treadmill Report ---
INDICATION FOR THE PROCEDURE: Syncope. FINDINGS: There is no scintigraphic evidence of myocardial ischemia. There is evidence of a small fixed apical wall defect. The left ventricle is normal in size and systolic function. The left ventricular ejection fraction is measured at 53%. There is normal wall motion and wall thickening on gated imaging. CONCLUSION: 1. No scintigraphic evidence of myocardial ischemia. 2. Small fixed apical wall defect. 3. Normal left ventricular size and systolic function. CONCLUSION: This is a low risk myocardial perfusion scan associated with a 1-year cardiovascular mortality of less than 1%. JOB# [id number] ROB/DEJON
[2017-03-17] MEDS: NACL 0.45% 2,000 ML IV SCH ×2 (06:20→23:27)
[2017-03-17] MEDS: DIOVAN PO SCH (10:29)
[2017-03-17] MEDS: BABY ASPIRIN PO SCH (10:30)
[2017-03-17] MEDS: PROTONIX PO SCH (10:30)
[2017-03-17] MEDS: NORVASC PO SCH (10:30)
[2017-03-17 10:49] LABS: Calcium 8.6 mg/dL (8.4-10.2); Chloride 99.5 mmol/L (98-107); Potassium 3.5 mmol/L (3.6-5.0)
--- NOTE | 2017-03-17 12:02 | Progress Note ---
Assessment and Plan Near syncope No ischemia by MPI LVEF 40-45% by echo No events on telemetry monitoring Coronary artery disease with 3v CABG in 2006 Acute renal failure Anemia Systemic Hypertension Long standing history of coumadin therapy for unknown reason (patient is a very poor historian) Recommendations: Conservative cardiac management. Once discharge, follow up with [facility] as scheduled March 23. Subjective Date of service: 03/17/17 Principal diagnosis: General weakness Interval history: Patient reports he is feeling better. No reported events on telemetry monitoring. Objective Vital Signs Temp Pulse Resp BP BP Pulse Ox 03/17/17 05:08 98.2 F 48 L 20 136/84 98 03/17/17 00:55 98.2 F 47 L 18 167/106 97 03/17/17 00:00 49 L 03/16/17 23:00 49 L 151/94 03/16/17 22:00 18 03/16/17 20:53 97.5 F L 52 L 18 149/94 95 03/16/17 17:25 98.3 F 52 L 18 162/101 98 03/16/17 13:15 98.6 F 67 131/88 - Physical Examination General: No Apparent Distress Cardiac: Positive: Reg Rate and Rhythm Lungs: Positive: Decreased Breath Sounds Neuro: Positive: Grossly Intact Extremities: Absent: edema - Labs and Meds Comprehensive Metabolic Panel 03/17/17 Range/Units 09:22 Sodium 141 (137-145) mmol/L Potassium 3.5 L (3.6-5.0) mmol/L Chloride 99.5 (98-107) mmol/L Carbon Dioxide 28 (22-30) mmol/L BUN 27 H (9-20) mg/dL Creatinine 1.5 (0.8-1.5) mg/dL Glucose 109 H (75-100) mg/dL Calcium 8.6 (8.4-10.2) mg/dL - Imaging and Cardiology EKG: image reviewed - EKG Sinus rhythms and dysrhythmias: sinus tachycardia Chamber hypertrophy or enlargement: left ventricular hypertro
--- NOTE | 2017-03-17 18:41 | Progress Note ---
Assessment and Plan Assessment and plan: 76-year-old -[place] male with past medical history significant for CAD status post CABG hypertension presented for bradycardia and near syncope Bradycardia, with disequilibrium - Patient is stable after admission, continue telemetry monitoring - Cardiology consulted - Stress test is normal Hypertension -Discontinue lisinopril and HCTZ, patient started with amlodipine and hydralazine per cardiology Patient said he was on warfarin - But he denied any history of blood clot, A. fib, I'll hold the warfarin for now and the decision for cardiology IWONA - on IV fluids - Monitor BMP History of Aortic Dissection - W/U after IV hydration DVT prophylaxis - Patient is on SCD Disposition - Continue inpatient monitoring. History Interval history: Patient was seen and evaluated this morning, he has not new complaints after admission to the hospital. Hospitalist Physical - Physical exam Narrative exam: Not in cardiopulmonary distress. The patient appeared well nourished and normally developed. Vital signs as documented. Head exam is unremarkable. No scleral icterus . Neck is without jugular venous distension, thyromegaly, or carotid bruits. Lungs are clear to auscultation. Cardiac exam reveals bradycardia. Abdominal exam reveals normal bowel sounds, no masses, no organomegaly and no aortic enlargement. Extremities are nonedematous and both femoral and pedal pulses are normal. ROLLER SETTER: Alert and oriented 3. No focal weakness. - Constitutional Vitals: Temp Pulse Resp BP Pulse Ox 98.3 F 75 18 160/103 98 03/17/17 18:02 03/17/17 18:02 03/17/17 18:02 03/17/17 18:02 03/17/17 18:02 General appearance: Present: no acute distress Results - Labs CBC & Chem 7: 03/15/17 06:47 03/17/17 09:22 Labs: Laboratory Last Values WBC 5.5 K/mm3 (4.5-11.0) 03/15/17 06:47 RBC 3.48 M/mm3 (3.65-5.03) L 03/15/17 06:47 Hgb 10.6 gm/dl (11.8-15.2) L 03/15/17 06:47 Hct 31.7 % (35.5-45.6) L 03/15/17 06:47 MCV 91 fl (84-94) 03/15/17 06:47 MCH 30 pg (28-32) 03/15/17 06:47 MCHC 33 % (32-34) 03/15/17 06:47 RDW 13.6 % (13.2-15.2) 03/15/17 06:47 Plt Count 224 K/mm3 (140-440) 03/15/17 06:47 Lymph % (Auto) 23.9 % (13.4-35.0) 03/15/17 06:47 [place] % (Auto) 5.3 % (0.0-7.3) 03/15/17 06:47 Eos % (Auto) 0.8 % (0.0-4.3) 03/15/17 06:47 Baso % (Auto) 0.6 % (0.0-1.8) 03/15/17 06:47 Lymph # 1.3 K/mm3 (1.2-5.4) 03/15/17 06:47 [place] # 0.3 K/mm3 (0.0-0.8) 03/15/17 06:47 Eos # 0.0 K/mm3 (0.0-0.4) 03/15/17 06:47 Baso # 0.0 K/mm3 (0.0-0.1) 03/15/17 06:47 Seg Neutrophils % 69.4 % (40.0-70.0) 03/15/17 06:47 Seg Neutrophils # 3.8 K/mm3 (1.8-7.7) 03/15/17 06:47 PT 22.4 Sec. (12.2-14.9) H 03/15/17 06:47 INR 1.85 (0.87-1.13) H 03/15/17 06:47 APTT 33.3 Sec. (24.2-36.6) 03/15/17 06:47 Sodium 141 mmol/L (137-145) 03/17/17 09:22 Potassium 3.5 mmol/L (3.6-5.0) L 03/17/17 09:22 Chloride 99.5 mmol/L (98-107) 03/17/17 09:22 Carbon Dioxide 28 mmol/L (22-30) 03/17/17 09:22 Anion Gap 17 mmol/L 03/17/17 09:22 BUN 27 mg/dL (9-20) H 03/17/17 09:22 Creatinine 1.5 mg/dL (0.8-1.5) 03/17/17 09:22 Estimated GFR 55 ml/min 03/17/17 09:22 BUN/Creatinine Ratio 18 % 03/17/17 09:22 Glucose 109 mg/dL (75-100) H 03/17/17 09:22 Calcium 8.6 mg/dL (8.4-10.2) 03/17/17 09:22 Magnesium 2.10 mg/dL (1.7-2.3) 03/14/17 15:14 Total Bilirubin 0.40 mg/dL (0.1-1.2) 03/14/17 15:14 Direct Bilirubin < 0.2 mg/dL (0-0.2) 03/14/17 15:14 Indirect Bilirubin 0.2 mg/dL 03/14/17 15:14 AST 20 units/L (5-40) 03/14/17 15:14 ALT 8 units/L (7-56) 03/14/17 15:14 Alkaline Phosphatase 53 units/L (35-129) 03/14/17 15:14 Troponin T < 0.010 ng/mL (0.00-0.029) 03/14/17 19:51 NT-Pro-B Natriuret Pep 893.1 pg/mL (0-900) 03/14/17 15:14 Total Protein 6.4 g/dL (6.3-8.2) 03/14/17 15:14 Albumin 3.8 g/dL (3.9-5) L 03/14/17 15:14 Albumin/Globulin Ratio 1.5 % 03/14/17 15:14 Triglycerides 50 mg/dL (2-149) 03/14/17 19:51 Cholesterol 185 mg/dL (50-199) 03/14/17 19:51 LDL Cholesterol Direct 104 mg/dL (50-130) 03/14/17 19:51 HDL Cholesterol 71 mg/dL (40-59) H 03/14/17 19:51 Cholesterol/HDL Ratio 2.60 % 03/14/17 19:51 TSH 1.350 mlU/mL (0.270-4.200) 03/14/17 19:51 Free T4 1.30 ng/dL (0.76-1.46) 03/14/17 15:14 Urine Color Yellow (Yellow) 03/14/17 16:46 Urine Turbidity Clear (Clear) 03/14/17 16:46 Urine pH 6.0 (5.0-7.0) 03/14/17 16:46 Ur Specific [place] 1.015 (1.003-1.030) 03/14/17 16:46 Urine Protein <15 mg/dl mg/dL (Negative) 03/14/17 16:46 Urine Glucose (UA) Neg mg/dL (Negative) 03/14/17 16:46 Urine Ketones Neg mg/dL (Negative) 03/14/17 16:46 Urine Blood Neg (Negative) 03/14/17 16:46 Urine Nitrite Neg (Negative) 03/14/17 16:46 Urine Bilirubin Neg (Negative) 03/14/17 16:46 Urine Urobilinogen 4.0 mg/dL (<2.0) 03/14/17 16:46 Ur Leukocyte Esterase Neg (Negative) 03/14/17 16:46 Urine WBC (Auto) < 1.0 /HPF (0.0-6.0) 03/14/17 16:46 Urine RBC (Auto) 2.0 /HPF (0.0-6.0) 03/14/17 16:46 Urine Bacteria (Auto) 1+ /HPF (Negative) 03/14/17 16:46 Urine Mucus Few /HPF 03/14/17 16:46
[2017-03-18 06:00] LABS: Calcium 8.4 mg/dL (8.4-10.2); Chloride 100.3 mmol/L (98-107); Potassium 3.9 mmol/L (3.6-5.0)
--- NOTE | 2017-03-18 11:42 | Discharge Summary ---
Providers - Providers Date of Admission: 03/14/17 15:44 Date of discharge: 03/18/17 Attending physician: SHAHZAD CALI MD Primary care physician: CATERING SOUS CHEF Hospitalization Reason for admission: symptomatic bradycardia, CAD s/p CABG Condition: Stable Pertinent studies: Cardiac stress test - Negative for acute ischemia Hospital course: 76-year-old -[place] male with past medical history significant for CAD status post 2 CABG, hypertension, hyperlipidemia presented to the emergency department for the complaints of low heart rate and near syncope. The patient said he had bradycardia the lowest was 36, associated with feeling woozy for a while. When he feels this kind of symptoms he usually sits down and check his heart rate and usually was low. This morning after he took his blood pressure medications he almost passed out and check his heart rate and it was 36. There is no bartolo blocking agents in his medication list. Patient said he was not taking warfarin but he was in his medication list and his INR was 1.9. Patient was admitted to the floor and cardiology was consulted, did echo and cardiac stress test, both were unremarkable. Patient was hemodynamically stable at the time of stay in the hospital. Patient has bradycardia but asymptomatic while in the hospital. Cardiology recommended to follow him as an outpatient. Patient was not on any bartolo blocking agents. Patient's concerns and questions were addressed at the bedside and discharged home. I did know why he was taking Coumadin and patient also didn't know why and advised him to go back to his primary care physician was asked to restart or to discontinue. 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 The patient appeared well nourished and normally developed. Vital signs as documented. Head exam is unremarkable. No scleral icterus . Neck is without jugular venous distension, thyromegaly, or carotid bruits. Lungs are clear to auscultation. Cardiac exam reveals bradycardia. Abdominal exam reveals normal bowel sounds, no masses, no organomegaly and no aortic enlargement. Extremities are nonedematous and both femoral and pedal pulses are normal. TAR LEVELER: Alert and oriented 3. No focal weakness. - Constitutional Vitals: Temp Pulse Resp BP Pulse Ox 98.7 F 57 L 18 186/114 96 03/18/17 07:44 03/18/17 07:44 03/18/17 07:44 03/18/17 07:44 03/18/17 07:44 Plan Activity: no restrictions Weight Bearing Status: Full Weight Bearing Diet: low fat, low cholesterol, low salt Follow up with: PRIMARY CARE,MD [Primary Care Provider] - 3-5 Days [facility] [Provider Group] - 7 Days Prescriptions: amLODIPine [Norvasc] 10 mg PO QDAY #30 tablet Aspirin [Aspirin BABY CHEW TAB] 81 mg PO QDAY #30 tab.chew Valsartan [Diovan] 160 mg PO DAILY #30 tablet
[2017-03-18] MEDS: BABY ASPIRIN PO SCH (12:32)
[2017-03-18] MEDS: PROTONIX PO SCH (12:32)
[2017-03-18] MEDS: NORVASC PO SCH (12:33)
[2017-03-18] MEDS: DIOVAN PO SCH (12:34)
[2017-03-18 12:35] VITALS: BP 180/100
== END 2017-03-18 15:50 | disposition home or self-care (01) | DRG 308 ==
LOC: ED 12:49 → 4A 15:44
PROVIDERS: ADMIT Internal Medicine; ATTEND Internal Medicine
DX: R00.1 Bradycardia, unspecified (principal); N17.0 Acute kidney failure with tubular necrosis; I25.2 Old myocardial infarction; Z87.891 Personal history of nicotine dependence; I25.10 Atherosclerotic heart disease of native coronary artery without angina pectoris; Z95.1 Presence of aortocoronary bypass graft; E78.5 Hyperlipidemia, unspecified; I12.9 Hypertensive chronic kidney disease with stage 1 through stage 4 chronic kidney disease, or unspecified chronic kidney disease; N18.9 Chronic kidney disease, unspecified; D64.9 Anemia, unspecified
CPT/HCPCS: 36415; 71010; 78452; 80048; 80061; 80074; 81001; 83735; 83880; 84439; 84443; 84484; 85025; 85610; 85730; 93005; 93010; 93017; 93306; A9502; J2785; J7030

== ENCOUNTER 2018-08-29 11:29 | Outpatient (CLI) | payer MEDICARE ==
[2018-08-29 12:33] LABS: Calcium 8.6 mg/dL (8.4-10.2)
[2018-09-01 05:37] LABS: Albumin 3.8 g/dL (3.8-4.8); Gamma Globulin 1.2 g/dL (0.8-1.7)
== END 2018-08-29 11:30 | disposition home or self-care (01) ==
LOC: LAB 11:29
PROVIDERS: ATTEND Internal Medicine Nephrology
DX: I12.9 Hypertensive chronic kidney disease with stage 1 through stage 4 chronic kidney disease, or unspecified chronic kidney disease (principal); N18.3 Chronic kidney disease, stage 3 (moderate)
CPT/HCPCS: 36415; 80048; 82040; 83735; 84100; 84165